=== PATIENT | male | born 1990 | race African-American/Black ===

== ENCOUNTER 2016-10-23 07:23 | Emergency (ER) | payer SELFPAY ==
[~2016-10-23] VITALS: Ht 195.6 cm; Wt 160.0 kg
[~2016-10-23 07:23] MED LIST: AMOX500C PO; AMOX500T PO; Z.0.NO CURRENT MEDS
[2016-10-23 07:25] VITALS: BP 179/86; PULSE 66; RESP 20; TEMP 97.7; O2SAT 100
--- NOTE | 2016-10-23 07:49 | PD ---
HPI . sore throat and swollen uvula Chief Complaint: ENT Complaint Time Seen by Provider: 07:42 Travel History International Travel<30 days: No Contact w/Intl Traveler<30days: No Traveled to known affect area: No History of Present Illness HPI 26-year-old male here with complaints of his uvula being swollen this morning. He also tells me that he's had somewhat of a sore throat for the past several days. Upon further questioning, patient has actually had more of itchy throat. He denies any fever or chills. He is requesting a Z-Cal as he had strep in the past and was treated. He denies any other symptoms. [facility] Past Medical History Medical History: Denies Significant Hx Diminished Hearing: No Past Surgical History Surgical History: No Previous Surgery Social History Alcohol Use: Yes (OCCAS) Tobacco Use: No Substance Use: No Allergies-Medications (Allergen,Severity, Reaction): Coded Allergies: No Known Allergies (Verified , 10/23/16) Reported Meds & Prescriptions Reported Meds & Active Scripts Active No Active Prescriptions or Reported Medications Review of Systems General / Constitutional: No: Fever Eyes: No: Visual changes HENT: Positive: Sore Throat, No: Headaches Cardiovascular: No: Chest Pain or Discomfort Respiratory: No: Shortness of Breath Gastrointestinal: No: Abdominal Pain Genitourinary: No: Dysuria Musculoskeletal: No: Pain Skin: No Rash Neurologic: No: Weakness Psychiatric: No: Depression Endocrine: No: Polydipsia Hematologic/Lymphatic: No: Easy Bruising Physical Exam Narrative GENERAL: AAO x 3, no acute distress, Well-nourished, well-developed patient. SKIN: Warm and dry. No visible rashes or bruising. HEAD: Normocephalic and atraumatic. EYES: No scleral icterus. No injection or drainage. EOM intact, PERRLA ENT: No nasal drainage noted. Mucous membranes pink. Airway patent. Uvula midline. No tonsillar edema, erythema or exudates. No posterior pharynx erythema. No oropharynx abnormality. TMs with slight clear effusion. Mild postnasal drip NECK: Supple, trachea midline. No JVD. No cervical chain adenopathy. CARDIOVASCULAR: Regular rate and rhythm without murmurs, gallops, or rubs. RESPIRATORY: Breath sounds equal bilaterally. No accessory muscle use. No rhonchi or rales. No wheezing GASTROINTESTINAL: Visual inspection normal EXTREMITIES: No cyanosis or edema. BACK: No obvious deformity. NEURO: CN II-12 intact, PSYCH: AAO x 3, normal affect. Data Data Last Documented VS [facility] Medical Decision Making Medical Screen Exam Complete: Yes Emergency Medical Condition: No Medical Record Reviewed: Yes Differential Diagnosis allergic rhinitis, less likely pharyngitis, sleep apnea Narrative Course A medical screening exam was performed: At the time of evaluation the presenting medical condition was determined not to be of an emergent nature. The patient was given the option of receiving additional care, but declined. Patient was given options for additional community resources from which to obtain care. The Patient Has Been advised to seek medical attention for their presenting complaint. The patient has been advised to return to the ER at any time if an emergent condition develops. Advised OTC allergy medicine and f/u with PCP for ENT if symptoms persist. Diagnosis Primary Impression: Encounter for medical screening examination Scripts No Active Prescriptions or Reported Meds Condition: Stable Leonor Méndez Oct 23, 2016 07:49
== END 2016-10-23 07:53 | disposition left against medical advice (07) ==
LOC: NEPD 07:23
DX: J02.9 Acute pharyngitis, unspecified (principal)
CPT/HCPCS: 99281